=== PATIENT | female | born 1970 | race Caucasian/White ===

== ENCOUNTER 2016-07-17 22:41 | Inpatient (IN) | payer BC, SELFPAY ==
--- NOTE | ~2016-07-17 | CN ---
Consultation Report [facility] [address] [facility] [address] NAME: TRISTA GONZALEZ : 66 STATUS : ADM IN PAT#: [id number] AGE: 45 ADM/REG DATE : 07/17/16 MR#: [id number] REPORT SERV DATE: 07/18/16 DICTATED BY: JAN PACK DATE: 07/18/16 REPORT STATUS : Draft TRANSCRIBED BY: MODL DATE: 07/18/16 GI CONSULTATION DATE OF CONSULTATION: 07/18/2016 REASON FOR CONSULTATION: Evaluation and management of abdominal pain, colitis by CT scan. HISTORY OF PRESENT ILLNESS: Ms. Gonzalez is a 45-year-old female patient, who is known to Dr. Henry Unger, who presented to [facility] as a transfer from [facility] on 07/17/2016. She was seen there secondary to abdominal pain, diarrhea, and fever. She was found to have elevated white blood cell count. She had a CT scan done there with contrast showing marked thickening of the wall of the colon and free pelvic fluid consistent with colitis. Her stools were sent for testing. She returned positive for C difficile and has been appropriately started on vancomycin. The patient reports allergic reaction in the form of anaphylaxis to Flagyl. She states that most recently she has been having trouble with nausea, vomiting, and was just seen by Dr. Unger and had an upper endoscopy on 07/10/2016 showing esophagitis, hiatal hernia, antritis, normal duodenum, biopsies were negative for H pylori. Some mild chronic inflammation was found. Her last colonoscopy was in 2011 with normal biopsies and normal exam. She states since last she has been having low abdominal pain cramping. She states that she would have frequent bowel movements which were loose, but she would not pass a lot at one time. She denies seeing any blood. She had fever at home on 07/16/2016 up to 100.6 degrees secondary to progression of her symptoms. She went into the emergency room at [facility] to be seen and subsequently was transferred to [facility] for further care. Initially, she was on Zosyn, which has been stopped, and the vancomycin started. I have seen her today. She states she is feeling somewhat better. Her pain is less. She wants to try liquids. I have discussed with her that we will start her on full-liquid diet, advance her diet as tolerated, continue the vancomycin for a course of 10 to 14 days, and would follow up with Dr. Unger as scheduled. PAST MEDICAL HISTORY: Positive for migraine headaches, endometriosis, gastritis, esophagitis, and insomnia. PAST SURGICAL HISTORY: Appendectomy, cholecystectomy, total abdominal hysterectomy, bilateral salpingo-oophorectomy, and tubal ligation. 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 She denies alcohol, tobacco, or illicits. FAMILY HISTORY: Noncontributory from a gastrointestinal standpoint. ALLERGIES: HER ALLERGIES ARE TO FLAGYL, WHICH CAUSES ANAPHYLAXIS. HOME MEDICATIONS: Prilosec, Zofran, and Ambien. Consultation Report [address] [place]. [address] NAME: TRISTA GONZALEZ : 66 STATUS : ADM IN PAT#: [id number] AGE: 45 ADM/REG DATE : 07/17/16 MR#: [id number] REPORT SERV DATE: 07/18/16 DICTATED BY: JAN PACK DATE: 07/18/16 REPORT STATUS : Draft TRANSCRIBED BY: EDISON DATE: 07/18/16 REVIEW OF SYSTEMS: A 10-point review of systems has been obtained with pertinent positives being addressed in the history of present illness. PHYSICAL EXAMINATION: VITAL SIGNS: Temperature is presently 98.3, temperature max has been 100, pulse 76, respirations 18, and blood pressure 98/61. NEUROLOGIC: Reveals an alert female, sitting up in bed with no focal deficits. GENERAL: Cooperative, in no apparent distress. She is awake, alert, and oriented x3. HEAD, EARS, EYES, NOSE, AND THROAT: Anicteric. Pupils are equal, round, and reactive to light and accommodation. Normocephalic and atraumatic. NECK: Supple. No JVD or palpable nodes. LUNGS: Decreased bilaterally in the bases. Clear in the upper lobes with normal respiratory effort exhibited. CARDIOVASCULAR SYSTEM: Regular rate and rhythm. S1 and S2. No murmurs, rubs, gallops, S3, or S4 appreciated. ABDOMEN: Soft. Mild tenderness to palpation to the lower abdomen. However, no rebound or guarding elicited on exam. She has active bowel sounds. EXTREMITIES: No edema. Normal distal pulses. SKIN: Warm, dry, and intact. PERTINENT LABORATORY DATA: Sodium is 142, potassium 3.2, BUN is 9, creatinine is 0.77. White count 21.3, hemoglobin 11.7, and hematocrit 35.2. Procalcitonin 0.75. ASSESSMENT/PLAN: 1. Clostridium difficile colitis. 2. Abdominal pain, cramping, secondary to #1. 3. Leukocytosis with fever secondary to #1. 4. Hypokalemia. PLAN: 1. Full liquid diet. Advance to soft low residue as tolerated. 2. Decrease her PPI to daily. Add Pepcid. 3. Continue vancomycin four times a day for 14 days. We will follow. LUKASZ/EDISON ARI Gómez / [id number] Consultation Report [address] [address] NAME: TRISTA GONZALEZ : 66 STATUS : ADM IN PAT#: [id number] AGE: 45 ADM/REG DATE : 07/17/16 MR#: [id number] REPORT SERV DATE: 07/18/16 DICTATED BY: JAN PACK DATE: 07/18/16 REPORT STATUS : Draft TRANSCRIBED BY: EDISON DATE: 07/18/16 CC: Juan Pablo Akbar MD UNKNOWN
--- NOTE | ~2016-07-17 | HP ---
History And Physical [address] [place]. [address] NAME: TRISTA CHATMAN : 66 STATUS : ADM IN PAT#: [id number] AGE: 45 ADM/REG DATE : 07/17/16 MR#: [id number] REPORT SERV DATE: 07/18/16 DICTATED BY: SHIRIN CANCHOLA DATE: 07/17/16 REPORT STATUS : Draft TRANSCRIBED BY: MODL DATE: 07/17/16 DATE OF ADMISSION: 07/17/2016 IDENTIFYING DATA: A 45-year-old white female, whose PCP is Dr. Alonzo Ennis, GI Dr. Henry Unger. CHIEF COMPLAINT: Abdominal pain. HISTORY OF PRESENT ILLNESS: This history of present illness was obtained by talking directly with the patient as well as reviewing the notes that came with her from [facility] as well as reviewing [employer] and [employer]. The patient was here April 2011 with abdominal pain, nausea, vomiting, diarrhea, had a workup including CT that was unremarkable, stool studies negative. A recent EGD and colonoscopy were unremarkable. Biopsies were unremarkable. Back in January 2010, she had some right lower quadrant pain, ended up having a diagnostic laparoscopy and had an incidental appendectomy that was found to be on pathology normal appendix. The patient states she has been having intermittent nausea and because of that she had seen GI Dr. Unger and on 07/10/2016 had an upper endoscopy showing some minimal erythema in the lower third of the esophagus. Biopsies were taken. Small hiatal hernia was noted. Diffuse mild erythema in the mucosa of the gastric antrum. Biopsy with cold forceps were done. The duodenum looked normal. Pathology report shows antral mucosa normal, negative H pylori. Esophageal biopsy with some mild chronic inflammation; no metaplasia, no dysplasia. The patient states that since Saturday prior to this current admission, she has had low abdominal crampy pain feeling like she needs to have a bowel movement. She has had nausea and intermittent vomiting. She says she has thrown up about four or five times a day. She describes the stool as loose but small in quantity. No bright red blood. No melena. She has had no travel outside the [place]. No contact with farm animals. She has one pet that is reportedly healthy dog. She has no unusual water or food sources and no sick contacts that she knows of. She went to [facility] for this evaluation tonight[place] [address], and they did a CT scan abdomen and pelvis, and reported that there were changes consistent with inflammatory proctocolitis. They also recorded a temperature of 102. They reportedly jonh blood cultures. The lactic acid level there was 8 which is in the normal lab value for their particular hospital. They also reportedly gave Zosyn, Toradol, Demerol, and Zofran. Then they requested transfer here as the patient preferred to be admitted here. REVIEW OF SYSTEMS: She had some fever at home yesterday up to 100.6. She has had some mild headache today. She denies sore throat, cough, nasal congestion, chest pain, shortness of breath, dysuria, urinary hesitancy, rash, tick bites, or weight changes. ALLERGIES: SHE CLAIMS ALLERGY TO FLAGYL, AND SHE GETS NAUSEA WITH MACROBID AND MORPHINE. History And Physical [address] [address] NAME: TRISTA CHATMAN MARA : 66 STATUS : ADM IN PAT#: [id number] AGE: 45 ADM/REG DATE : 07/17/16 MR#: [id number] REPORT SERV DATE: 07/18/16 DICTATED BY: SHIRIN CANCHOLA DATE: 07/17/16 REPORT STATUS : Draft TRANSCRIBED BY: EDISON DATE: 07/17/16 PAST MEDICAL HISTORY: She denies any history of diabetes, hypertension, asthma, COPD, heart disease, stroke, seizure, peptic ulcer, liver disease, thyroid disease, chronic kidney disease, kidney stones, cancer, or sleep apnea. She has a history of migraine headaches and a history of endometriosis. HOME MEDICATIONS: Omeprazole 20 mg b.i.d., ondansetron 4 mg q.4 hours p.r.n. nausea, and Ambien 5 mg at bedtime p.r.n. PAST SURGICAL HISTORY: She has appendectomy, cholecystectomy, ROMA-BSO, and a tubal ligation. SOCIAL HISTORY: She has no tobacco or alcohol intake history. 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 She lives with family. She states she walks without any assistive device. FAMILY HISTORY: Mother with breast cancer, stroke, TIA, and possible heart attack and hypertension. Father with lung cancer, was a smoker. Sibling, she states one brother being evaluated for possible MS. DIAGNOSTIC DATA: Please see history of present illness above for the description of the CT scan of the abdomen and pelvis that came as a report from [facility]. White count there was 24,000, hemoglobin was 13.8, platelets were 258,000. She had 94 segs, 2 lymphocytes, 4 monos. Sodium 140, potassium 3.8, chloride 100, CO2 is 25, BUN 7, creatinine 0.7, glucose 135, calcium 7.2, albumin 3.2. The rest of the CMP was normal. Urinalysis; pH was 8, specific gravity 1.026, protein was 100, ketones 80, urobilinogen is 4. It was otherwise unremarkable. PHYSICAL EXAMINATION: VITAL SIGNS: Temp is 100, pulse 96, respirations 16, blood pressure 119/68, O2 saturation is 98% on room air. BMI is 21. GENERAL: A well-developed female, who at this time appears in no acute distress. HEENT: Head is atraumatic. Pupils are equal, round, and reactive to light. Extraocular motions are intact. No scleral icterus noted. Ears, externally unremarkable. No inflammatory changes noted. Normal hearing bilaterally. Nose, noninflamed externally. Septum midline. Nares patent. Mouth, moist. Good gag. No redness of the throat, gums, or lips. NECK: Supple. No lymph node or thyroid enlargement. The carotids have good pulses. No bruits. LUNGS: Clear, good air flow. No wheezes, no rhonchi. HEART: Regular rate and rhythm without murmur, gallop, click, or rub. ABDOMEN: Bowel sounds positive. Soft, nondistended, mild tenderness in the suprapubic area and left lower quadrant. No mass. No rebound. No bruits. EXTREMITIES: Warm good pulses. No clubbing, no cyanosis, no edema. No actively inflamed skin or joints. NEUROLOGIC: Alert, oriented, and cooperative with grossly normal mentation and speech as well as motor and cranial nerves 2 through 12. No Babinski. No clonus noted. History And Physical [address] [address] NAME: TRISTA CHATMAN : 66 STATUS : ADM IN [facility]#: [id number] AGE: 45 ADM/REG DATE : 07/17/16 MR#: [id number] REPORT SERV DATE: 07/18/16 DICTATED BY: JOYCESHIRIN JARED DATE: 07/17/16 REPORT STATUS : Draft TRANSCRIBED BY: MODL DATE: 07/17/16 ASSESSMENT: 1. Fever, elevated white blood count, low abdominal crampy pain, diarrhea and CT suggesting proctocolitis. Differential diagnosis for this would be infectious cause versus inflammatory bowel, less likely neoplastic changes. 2. History of previous migraines. 3. History of previous endometriosis. 4. History of intermittent nausea with unclear explanation so far. PLAN: 1. The patient is being admitted to the hospital. 2. We will check stool, if it is diarrhea for culture and C. diff and parasites as well as leukocytes. We will also follow up on the two blood cultures drawn at [facility]. We will empirically put her on antibiotics with Zosyn. We will consult her GI. We will give her p.r.n. medicines for pain and nausea. We will ask [facility] to send us their CT scan images. RSG/EDISON Shirin Canchola M.D. / [id number] CC: MD Emeka Sosa M.D. Munford Yates III, M.D.
--- NOTE | ~2016-07-17 | DS ---
Discharge Summary [id number] [facility] [place]. [address] NAME: TRISTA CHATMAN : 66 STATUS : DIS IN PAT#: [id number] AGE: 45 ADM/REG DATE : 07/17/16 MR#: [id number] REPORT SERV DATE: 07/22/16 DICTATED BY: DATE: REPORT STATUS : Draft TRANSCRIBED BY: MODL DATE: 07/21/16 ADMISSION DATE: 07/17/2016 DISCHARGE DATE: 07/21/2016 DISCHARGE DIAGNOSES: 1. Clostridium difficile colitis. 2. Proctitis. 3. Leukocytosis. 4. Fever. 5. Gastroesophageal reflux disease. 6. Abdominal pain. 7. Nausea. CONSULTATIONS: GI, Dr. Chadwick and Dr. Oliveira. PROCEDURES AND IMAGING: On 07/20/2016, chest PA and lateral showed no acute cardiopulmonary disease with stable cholecystectomy. Global osteopenia. HOSPITAL COURSE: This is a 45-year-old female, who presented to the emergency room from [facility] with abdominal pain. Please refer to Dr. Canchola's admission H and P on 07/17/2016 for complete details regarding the patient's admission. In brief, the patient was admitted by Dr. Canchola for an initial workup and management of her abdominal pain, diarrhea, nausea, and vomiting. Upon initial testing the patient was found to be C. diff positive with negative Giardia, Cryptosporidium, and negative stool cultures. The patient's admission procalcitonin was 0.75 and GI was consulted on 07/18/2016. The patient had just been to GI on 07/10/2016 for an upper endoscopy which showed esophagitis, hiatal hernia, antritis, normal duodenum, and negative biopsies for H. pylori. The patient had been experiencing frequent liquid bowel movements and was unable to keep down any fluids or food. The patient also was experiencing a fever of up to 102. The patient has been started on vancomycin p.o. and this is day #3. The patient has been experiencing leukocytosis initially was 14.2, yesterday was 24.8, and today is down to 17.3. On 07/20/2016 her procalcitonin was elevated up to 9.3 and this was reviewed with Dr. Troy as well as GI. The patient also had a temperature up to 100.8. The patient has had a chest x-ray, and a urinalysis to rule out any other causes of possible fever, and both were negative. The patient's T-max today was 99.2. The patient received scheduled Zofran and Levsin, which has relieved much of her abdominal cramping. The patient is now able to tolerate GI soft diet with lot of residue. The patient is also experiencing semi-formed stools, and is able to tolerate fluids well. PHYSICAL EXAMINATION: VITAL SIGNS: Blood pressure is 105/60, respirations are 20, temperature is 98.7, heart rate is 80, and oxygen is 95% on room air. HEENT: Head is atraumatic and normocephalic. Pupils are equal, round, reactive to light and accommodation. Sclerae are nonicteric. Good dentition. NECK: Supple with no obvious thyromegaly or lymphadenopathy. Trachea is midline. Neck veins are flat. Discharge Summary [address] [address] NAME: TRISTA CHATMAN : 66 STATUS : DIS IN PAT#: [id number] AGE: 45 ADM/REG DATE : 07/17/16 MR#: [id number] REPORT SERV DATE: 07/22/16 DICTATED BY: DATE: REPORT STATUS : Draft TRANSCRIBED BY: MODL DATE: 07/21/16 CARDIAC: The patient has a regular rhythm with no obvious murmurs, rubs, or gallops. LUNGS: Clear to auscultation with normal respiratory effort. GI: Abdomen has minimally generalized tenderness to palpation, soft. Slightly tympanic bowel sounds in all four quadrants. Experiencing semi-formed stools. No palpable organomegaly. EXTREMITIES: No significant edema, clubbing, or cyanosis. Dorsalis pedis and posterior tibial pulses are palpable bilaterally. MUSCULOSKELETAL: The patient moves all extremities x4. Ambulatory without assistance. No difficulties with balance. SKIN: Skin is warm and dry with normal color and turgor. NEURO/PSYCH: The patient is alert and oriented x4, pleasant, cooperative. Cranial nerves 2 through 12 are grossly intact. Affect is bright. No apparent anxiety or depression. The patient has been able to hold down some of her soft foods. Has a good p.o. liquid intake. DISCHARGE DIET: GI soft low-residue diet. DISCHARGE MEDICATIONS: 1. Omeprazole 40 mg twice daily. 2. Levsin 0.125 mg sublingually before meals and at bedtime p.r.n. cramps. 3. Pepcid 40 mg at bedtime. 4. Vancomycin 125 mg p.o. every 6 hours for 14 days. 5. Acetaminophen 650 mg every 4 hours as needed for temp greater than 101. 6. Tucks pads p.r.n. to rectal area. 7. Anusol 2.5% cream to bedside as needed p.r.n. 8. Zofran 4 mg every 4 hours as needed for nausea. 9. Halcion 0.25 mg at bedtime. ALLERGIES: THE PATIENT IS ALLERGIC TO FLAGYL, HAS ANAPHYLACTIC REACTION. DISCHARGE INSTRUCTIONS: The patient is to follow up with Dr. Unger on 07/26/2016. Should the patient develop any more unrelieved abdominal pain, increase in her diarrhea or be unable to hold down fluids or food, she is to call her PCP or Dr. Unger or to present to the emergency department. Approximately 25 minutes have been spent coordinating discharge care of this patient including [id number] encounter and summarization of the discharge. FLOR/EDISON Samia Ocampo NP / [id number] CC: Discharge Summary [address] [address] NAME: TRISTA CHTAMAN : 66 STATUS : DIS IN PAT#: [id number] AGE: 45 ADM/REG DATE : 07/17/16 MR#: [id number] REPORT SERV DATE: 07/22/16 DICTATED BY: DATE: REPORT STATUS : Draft TRANSCRIBED BY: MODL DATE: 07/21/16 Kitty Ceron M.D.
[~2016-07-17 22:41] MED LIST: BI EST PO; DHE1 PO; HALCION0.25 MG PO; LEXAPRO10 PO; PRILOSEC40 MG PO; PROGESTERONE PO; PROTONIX PO; ZANTAC150 MG PO; ZOFRAN4 PO
[2016-07-18 06:32] LABS: BASOPHILS 0.1 %; BASOPHILS ABSOLUTE 0.03 10/3/uL (0.0-0.16); EOSINOPHILS 0.2 %; EOSINOPHILS ABSOLUTE 0.04 10/3/uL (0.0-0.53); HEMATOCRIT 35.2 % (36.0-48.0); HEMOGLOBIN 11.7 g/dL (12.0-16.0); IMMATURE GRANULOCYTES 0.7 %; IMMATURE GRANULOCYTES ABSOLUTE 0.14 10/3/uL (0.0-0.11); LYMPHOCYTES 5.6 %; LYMPHOCYTES ABSOLUTE 1.19 10/3/uL (0.67-4.30); MANUAL DIFF NO %; MEAN CORPUS HGB CONC 33.2 g/dL (32.0-36.0); MEAN CORPUSCULAR HEMOGLOB 28.4 pg (26.0-34.0); MEAN CORPUSCULAR VOLUME 85.4 fL (80-100); MEAN PLATELET VOLUME 9.4 fL (9.2-13.0); MONOCYTES 5.1 %; MONOCYTES ABSOLUTE 1.08 10/3/uL (0.21-1.20); NEUTROPHILS 88.3 %; PLATELET COUNT 218 10/3/uL (150-400); RED CELL COUNT 4.12 10/6/uL (4.0-5.6); WHITE BLOOD CELLS 21.3 10/3/uL (4.5-10.5)
[2016-07-18 06:38] LABS: BUN (BLOOD UREA NITROGEN) 9 MG/DL (6-23); CALCIUM, SERUM 8.7 MG/DL (8.5-10.4); CHLORIDE, SERUM 106 MMOL/L (96-112); CREATININE 0.77 MG/DL (0.55-1.02); GFR AFRICAN AMERICAN 107 ML/MIN (>=60); GFR NON AFRICAN AMERICAN 92 ML/MIN (>=60); POTASSIUM, SERUM 3.2 MMOL/L (3.5-5.3); SODIUM, SERUM 142 MMOL/L (135-148)
[2016-07-18 06:39] LABS: CO2 (CARBON DIOXIDE) 25 MMOL/L (24-34); GLUCOSE, SERUM 108 MG/DL (60-99)
[2016-07-18 07:48] LABS: PROCALCITONIN 0.75 ng/mL (<0.5)
[2016-07-18 16:07] LABS: POTASSIUM, SERUM 3.4 MMOL/L (3.5-5.3)
[2016-07-19 06:27] LABS: BASOPHILS 0.2 %; BASOPHILS ABSOLUTE 0.03 10/3/uL (0.0-0.16); EOSINOPHILS 1.8 %; EOSINOPHILS ABSOLUTE 0.31 10/3/uL (0.0-0.53); HEMATOCRIT 34.8 % (36.0-48.0); HEMOGLOBIN 11.8 g/dL (12.0-16.0); IMMATURE GRANULOCYTES 0.6 %; LYMPHOCYTES 6.1 %; LYMPHOCYTES ABSOLUTE 1.06 10/3/uL (0.67-4.30); MEAN CORPUS HGB CONC 33.9 g/dL (32.0-36.0); MEAN CORPUSCULAR HEMOGLOB 28.2 pg (26.0-34.0); MEAN CORPUSCULAR VOLUME 83.3 fL (80-100); MEAN PLATELET VOLUME 9.1 fL (9.2-13.0); MONOCYTES 6.4 %; MONOCYTES ABSOLUTE 1.11 10/3/uL (0.21-1.20); NEUTROPHILS 84.9 %; NEUTROPHILS ABSOLUTE 14.67 10/3/uL (2.02-8.40); PLATELET COUNT 194 10/3/uL (150-400); RED CELL COUNT 4.18 10/6/uL (4.0-5.6); WHITE BLOOD CELLS 17.3 10/3/uL (4.5-10.5)
[2016-07-19 06:28] LABS: MANUAL DIFF NO %
[2016-07-19 06:40] LABS: BUN (BLOOD UREA NITROGEN) 5 MG/DL (6-23); CALCIUM, SERUM 9.1 MG/DL (8.5-10.4); CHLORIDE, SERUM 106 MMOL/L (96-112); CO2 (CARBON DIOXIDE) 26 MMOL/L (24-34); CREATININE 0.75 MG/DL (0.55-1.02); GFR AFRICAN AMERICAN 110 ML/MIN (>=60); GFR NON AFRICAN AMERICAN 95 ML/MIN (>=60); GLUCOSE, SERUM 119 MG/DL (60-99); POTASSIUM, SERUM 3.9 MMOL/L (3.5-5.3); SODIUM, SERUM 142 MMOL/L (135-148)
[2016-07-20 06:35] LABS: HEMATOCRIT 35.4 % (36.0-48.0); MEAN CORPUS HGB CONC 33.9 g/dL (32.0-36.0); MEAN CORPUSCULAR HEMOGLOB 28.4 pg (26.0-34.0); MEAN CORPUSCULAR VOLUME 83.7 fL (80-100); MEAN PLATELET VOLUME 9.4 fL (9.2-13.0); PLATELET COUNT 238 10/3/uL (150-400); RED CELL COUNT 4.23 10/6/uL (4.0-5.6)
[2016-07-20 06:39] LABS: MANUAL DIFF YES %; WHITE BLOOD CELLS 24.8 10/3/uL (4.5-10.5)
[2016-07-20 06:50] LABS: BUN (BLOOD UREA NITROGEN) 4 MG/DL (6-23); CALCIUM, SERUM 8.8 MG/DL (8.5-10.4); CHLORIDE, SERUM 105 MMOL/L (96-112); CO2 (CARBON DIOXIDE) 30 MMOL/L (24-34); CREATININE 0.76 MG/DL (0.55-1.02); GFR AFRICAN AMERICAN 108 ML/MIN (>=60); GFR NON AFRICAN AMERICAN 93 ML/MIN (>=60); GLUCOSE, SERUM 109 MG/DL (60-99); POTASSIUM, SERUM 3.7 MMOL/L (3.5-5.3); SODIUM, SERUM 142 MMOL/L (135-148)
[2016-07-20 07:07] LABS: BAND NEUTROPHILS 4 %; BASOPHILS 1 %; BASOPHILS ABSOLUTE (CALC) 0.25 10/3/uL (0.0-0.16); EOSINOPHILS 1 %; EOSINOPHILS ABSOLUTE (CALC) 0.25 10/3/uL (0.0-0.53); LYMPHOCYTES 5 %; LYMPHOCYTES ABSOLUTE (CALC) 1.24 10/3/uL (0.67-4.30); MONOCYTES 5 %; MONOCYTES ABSOLUTE (CALC) 1.24 10/3/uL (0.21-1.20); NEUTROPHILS ABSOLUTE (CALC) 21.82 10/3/uL (2.02-8.40); SEGMENTED NEUTROPHIL (0) 84 %; TOTAL NUCLEATED CELLS 100
[2016-07-20 07:08] LABS: PLATELET ESTIMATE ADQ (ADEQUATE); RBC MORPHOLOGY NORM (NORMAL)
[2016-07-20 11:56] LABS: PROCALCITONIN 9.33 ng/mL (<0.5)
[2016-07-20 14:52] LABS: ASCORBIC ACID (UR NOT ORDER) NEG (NEG); BILIRUBIN, URINE NEGATIVE (NEG); KETONE, URINE TRACE MG/DL (NEG); LEUKOCYTE ESTERASE(NOT OR NEG (NEG); WBC (NOT ORDERED) (RFLEX) 1 (0-5)
[2016-07-21 06:46] LABS: HEMATOCRIT 32.8 % (36.0-48.0); HEMOGLOBIN 10.8 g/dL (12.0-16.0); MEAN CORPUS HGB CONC 32.9 g/dL (32.0-36.0); MEAN CORPUSCULAR HEMOGLOB 28.3 pg (26.0-34.0); MEAN CORPUSCULAR VOLUME 85.9 fL (80-100); MEAN PLATELET VOLUME 9.4 fL (9.2-13.0); PLATELET COUNT 201 10/3/uL (150-400); RBC DISTRIBUTION WIDTH 13.1 % (12.0-16.0); RED CELL COUNT 3.82 10/6/uL (4.0-5.6)
[2016-07-21 06:49] LABS: MANUAL DIFF YES %; WHITE BLOOD CELLS 14.2 10/3/uL (4.5-10.5)
[2016-07-21 07:03] LABS: BUN (BLOOD UREA NITROGEN) 4 MG/DL (6-23); CALCIUM, SERUM 8.6 MG/DL (8.5-10.4); CHLORIDE, SERUM 107 MMOL/L (96-112); CO2 (CARBON DIOXIDE) 34 MMOL/L (24-34); CREATININE 0.74 MG/DL (0.55-1.02); GFR AFRICAN AMERICAN 112 ML/MIN (>=60); GFR NON AFRICAN AMERICAN 96 ML/MIN (>=60); GLUCOSE, SERUM 89 MG/DL (60-99); POTASSIUM, SERUM 3.8 MMOL/L (3.5-5.3); SODIUM, SERUM 145 MMOL/L (135-148)
[2016-07-21 07:15] LABS: BAND NEUTROPHILS 16 %; LYMPHOCYTES 5 %; LYMPHOCYTES ABSOLUTE (CALC) 0.71 10/3/uL (0.67-4.30); MONOCYTES 1 %; MONOCYTES ABSOLUTE (CALC) 0.14 10/3/uL (0.21-1.20); NEUTROPHILS ABSOLUTE (CALC) 13.35 10/3/uL (2.02-8.40); PLATELET ESTIMATE ADQ (ADEQUATE); SEGMENTED NEUTROPHIL (0) 78 %; TOTAL NUCLEATED CELLS 100
[2016-07-21 07:16] LABS: RBC MORPHOLOGY NORM (NORMAL)
[2016-07-21] MEDS ORDERED: LEVSINTAB PO (11:58)
[2016-07-21] MEDS ORDERED: VANCOCIN HCL125 MG PO (14:09)
[2016-12-14] MEDS ORDERED: BEN25 PO (17:28)
[2016-12-14] MEDS ORDERED: MEDROLPAK4 PO (17:28)
[2016-12-14] MEDS ORDERED: ZANTAC150 MG (17:29)
== END 2016-07-21 17:35 | disposition home or self-care (01) | DRG 372 ==
LOC: 4SO 22:41
PROVIDERS: Hospitalist; Internal Medicine; Nurse Practitioner Family
DX: A04.7 Enterocolitis due to Clostridium difficile (principal); K51.30 Ulcerative (chronic) rectosigmoiditis without complications; Z88.1 Allergy status to other antibiotic agents; Z88.3 Allergy status to other anti-infective agents; Z88.5 Allergy status to narcotic agent; G47.00 Insomnia, unspecified; E87.6 Hypokalemia; K21.9 Gastro-esophageal reflux disease without esophagitis
CPT/HCPCS: 71020; 80048; 81001; 83735; 84132; 84145; 85025; 87045; 87046; 87046-59; 87328; 87329; 87493; 87493-59; 87899; 87899-59; 89055; A9270-GY; J1170; J2405; J2543